=== PATIENT | male | born 2000 | race Two or more races ===

== ENCOUNTER 2025-02-01 13:49 | Emergency (ER) | payer OTHER ==
[~2025-02-01] VITALS: Ht 170.2 cm; Wt 65.8 kg
[2025-02-01] MEDS ORDERED: TRAM1TAB98 PO (17:54)
== END 2025-02-01 23:03 | disposition home or self-care (01) ==
LOC: ER 13:49
DX: S52.042A Displaced fracture of coronoid process of left ulna, initial encounter for closed fracture (principal); W19.XXXA Unspecified fall, initial encounter; Y93.89 Activity, other specified; Y92.89 Other specified places as the place of occurrence of the external cause; Y99.8 Other external cause status

== ENCOUNTER 2025-02-21 15:37 | Outpatient (CLI) | payer OTHER ==
[~2025-02-21 15:37] MED LIST: TRAM1TAB98 PO
== END 2025-02-21 15:41 | disposition home or self-care (01) ==
LOC: RAD 15:37
PROVIDERS: ATTEND Orthopaedic Surgery
DX: S52.045A Nondisplaced fracture of coronoid process of left ulna, initial encounter for closed fracture (principal)